=== PATIENT | male | born 1970 | race Caucasian/White ===

== ENCOUNTER 2019-01-05 22:01 | Emergency (ER) | payer MEDICAID ==
[~2019-01-05] VITALS: Ht 180.3 cm; Wt 74.0 kg
[~2019-01-05 22:01] MED LIST: PRED10TA PO
[2019-01-05 22:21] VITALS: BP 131/58
== END 2019-01-06 01:06 | disposition left against medical advice (07) ==
LOC: ER 22:01
DX: M79.642 Pain in left hand (principal); Z53.21 Procedure and treatment not carried out due to patient leaving prior to being seen by health care provider

== ENCOUNTER 2021-09-12 17:13 | Emergency (ER) | payer MEDICAID ==
[~2021-09-12] VITALS: Ht 180.3 cm; Wt 75.0 kg
[2021-09-12] MEDS ORDERED: acetaminophen 325mg tablet PO ONE (18:10)
--- NOTE | 2021-09-12 18:26 | NUR ---
assumed care of pt. medicated pt. pt calmly sitting on [address] playing game on phone
[2021-09-12 20:05] VITALS: BP 126/78
== END 2021-09-12 20:12 | disposition home or self-care (01) ==
LOC: ER 17:13
DX: S79.19 Other physeal fracture of lower end of femur (principal); M25.562 Pain in left knee; F17.200 Nicotine dependence, unspecified, uncomplicated; F12.90 Cannabis use, unspecified, uncomplicated; Z88.0 Allergy status to penicillin; Z79.899 Other long term (current) drug therapy; X58.XXXD Exposure to other specified factors, subsequent encounter
CPT/HCPCS: 29505; 73564; 73700; 99284